=== PATIENT | female | born 1955 | race Two or more races ===

== ENCOUNTER 2018-12-02 17:14 | Observation (INO) | payer OTHER ==
--- NOTE | 2018-12-02 17:45 | EDPHY ---
H & P Time Seen by Provider: 12/02/18 17:45 HPI/ROS: CHIEF COMPLAINT: Bilateral thigh wounds HISTORY OF PRESENT ILLNESS: Patient is on multiple medications for rheumatoid arthritis including methotrexate. She had symptoms of a urinary tract 2 weeks ago and was treated with norfloxacin and tinidazole, and that got better but she was having some urinary leakage onto her thighs and developed a rash or a sore on both thighs which now is worsening and more painful. Associated with chills but no fever. Her urinary symptoms have improved. She also has a sore in her mouth that has been there for several months. REVIEW OF SYSTEMS: Eye: no change in vision ENT: HPI Cardiac: no chest pain or syncope Pulmonary: no cough or SOB Abdomen: no vomiting, diarrhea, abdominal pain Musculoskeletal: no back pain; can't walk due to skin rash rubbing and pain Skin: HPI Neuro: no headache Constitutional: Chills : no urinary symptoms A comprehensive 10 point review of systems is otherwise negative aside from elements mentioned in the history of present illness. PAST MEDICAL HISTORY: Includes hypertension, rheumatoid arthritis on methotrexate and leflunomide, hypothyroid Social history: Here with her daughter who is translating General Appearance: Alert and conversant, cooperative. Eyes: No scleral icterus. ENT, Mouth: Intraoral small linear 5 mm ulcer base of the tongue on the right. It apparently has been there for over a month. Respiratory: Normal respiratory effort, breath sounds equal, lungs are clear to auscultation. Cardiovascular: Regular rate and rhythm. Tachycardic. Gastrointestinal: Abdomen is soft and non tender. Neurological: Alert, face symmetric, normal motor and sensory in extremities. Skin: Bilateral crusting lesions on both inner thighs 8 cm diameter without lymphangitis or fluctuance but tender to palpation. Musculoskeletal: No peripheral edema. Psychiatric: Not agitated. Emergency Department course/MDM: Heart rate noted to be elevated, with chills and cellulitis concern for more systemic infection possibly. CBC chemistry IV fluids and lactate. 1936: Re-evaluated heart rate is 110. Recommended admission; possible cellulitis with tachycardia and inability to walk. I think it is unlikely to be Solorzano-Mickey. Her oral ulcer was there before recent antibiotic treatment. Smoking Status: Never smoked Constitutional: Initial Vital Signs Temperature (C) 36.7 C 12/02/18 17:23 Heart Rate 112 H 12/02/18 17:23 Respiratory Rate 18 12/02/18 17:23 Blood Pressure 152/101 H 12/02/18 17:23 O2 Sat (%) 97 12/02/18 17:23 O2 Delivery Mode Room Air Allergies/Adverse Reactions: No Known Allergies Allergy (Unverified 12/02/18 17:21) Home Medications: Medication Instructions Recorded Folic Acid [Folic Acid 1 MG (*)] 1 mg PO SUMOTHFRSA 12/02/18 Levothyroxine [Synthroid 125 mcg 125 mcg PO DAILY06 12/02/18 (*)] Losartan/Hctz 50/12.5 [Hyzaar 1 tab PO DAILY 12/02/18 50/12.5MG (*)] Methotrexate Sodium [Trexall] 10 mg PO WE 12/02/18 Omeprazole 20 mg PO DAILY 12/02/18 Medical Decision Making Differential Diagnosis: Differential considered including but not limited to cellulitis, abscess, fasciitis, contact dermatitis, drug reaction Consult/Admit Bed Type: [place] [id number] - Data Points Laboratory Results: Laboratory Results 12/02/18 18:05 12/02/18 18:05 12/02/18 12/02/18 12/02/18 19:35 18:06 18:05 WBC RBC Hgb Hct MCV MCH MCHC RDW Plt Count MPV Neut % (Auto) Lymph % (Auto) [place] % (Auto) Eos % (Auto) Baso % (Auto) Nucleat RBC Rel Count Absolute Neuts (auto) Absolute Lymphs (auto) Absolute Monos (auto) Absolute Eos (auto) Absolute Basos (auto) Absolute Nucleated RBC Immature Gran % Immature Gran # ESR VBG Lactic Acid 1.0 mmol/L mmol/L (0.7-2.1) Sodium Potassium Chloride Carbon Dioxide Anion Gap BUN Creatinine Estimated GFR Glucose Calcium C-Reactive Protein Pending Urine Color PALE YELLOW Urine Appearance CLEAR Urine pH 6.0 (5.0-7.5) Ur Specific [place] 1.002 (1.002-1.030) Urine Protein NEGATIVE (NEGATIVE) Urine Ketones NEGATIVE (NEGATIVE) Urine Blood NEGATIVE (NEGATIVE) Urine Nitrate NEGATIVE (NEGATIVE) Urine Bilirubin NEGATIVE (NEGATIVE) Urine Urobilinogen NEGATIVE EU EU (0.2-1.0) Ur Leukocyte Esterase NEGATIVE (NEGATIVE) Urine Glucose NEGATIVE (NEGATIVE) 12/02/18 12/02/18 12/02/18 18:05 18:05 18:05 WBC 3.11 10^3/uL L 10^3/uL (3.80-9.50) RBC 3.41 10^6/uL L 10^6/uL (4.18-5.33) Hgb 9.4 g/dL L g/dL (12.6-16.3) Hct 29.2 % L % 28.7 % L % (38.0-47.0) (38.0-47.0) MCV 84.2 fL fL (81.5-99.8) MCH 27.6 pg L pg (27.9-34.1) MCHC 32.8 g/dL g/dL (32.4-36.7) RDW 15.1 % % (11.5-15.2) Plt Count 171 10^3/uL 10^3/uL (150-400) MPV 10.1 fL fL (8.7-11.7) Neut % (Auto) 50.5 % % (39.3-74.2) Lymph % (Auto) 32.8 % % (15.0-45.0) [place] % (Auto) 11.6 % % (4.5-13.0) Eos % (Auto) 4.2 % % (0.6-7.6) Baso % (Auto) 0.3 % % (0.3-1.7) Nucleat RBC Rel Count 0.0 % % (0.0-0.2) Absolute Neuts (auto) 1.57 10^3/uL L 10^3/uL (1.70-6.50) Absolute Lymphs (auto) 1.02 10^3/uL 10^3/uL (1.00-3.00) Absolute Monos (auto) 0.36 10^3/uL 10^3/uL (0.30-0.80) Absolute Eos (auto) 0.13 10^3/uL 10^3/uL (0.03-0.40) Absolute Basos (auto) 0.01 10^3/uL L 10^3/uL (0.02-0.10) Absolute Nucleated RBC 0.00 10^3/uL 10^3/uL (0-0.01) Immature Gran % 0.6 % % (0.0-1.1) Immature Gran # 0.02 10^3/uL 10^3/uL (0.00-0.10) ESR Pending VBG Lactic Acid Sodium 133 mEq/L L mEq/L (135-145) Potassium 3.9 mEq/L mEq/L (3.5-5.2) Chloride 101 mEq/L mEq/L (97-110) Carbon Dioxide 21 mEq/l L mEq/l (22-31) Anion Gap 11 mEq/L mEq/L (6-14) BUN 14 mg/dL mg/dL (7-23) Creatinine 0.9 mg/dL mg/dL (0.6-1.0) Estimated GFR > 60 Glucose 100 mg/dL mg/dL (70-100) Calcium 9.1 mg/dL mg/dL (8.5-10.4) C-Reactive Protein Urine Color Urine Appearance Urine pH Ur Specific [place] Urine Protein Urine Ketones Urine Blood Urine Nitrate Urine Bilirubin Urine Urobilinogen Ur Leukocyte Esterase Urine Glucose Medications Given: Discontinued Medications Sodium Chloride (Ns) 2,100 mls @ 4,200 mls/hr 30 ml/kg infuse over 30 min ( 2100 ml) IV EDNOW ONE PRN Reason: Protocol Stop: 12/02/18 18:25 Last Admin: 12/02/18 18:32 Dose: 2,100 mls Cefazolin Sodium/Dextrose (Ancef) 100 mls @ 200 mls/hr IV EDNOW ONE PRN Reason: Protocol Stop: 12/02/18 18:40 Last Admin: 12/02/18 18:36 Dose: 100 mls Departure - Departure Disposition: [facility] Acute Clinical Impression: bilateral thigh cellulitis Condition: Fair
[2018-12-02] MEDS ORDERED: NS 2,100 ML IV ONE (17:56)
[2018-12-02] MEDS ORDERED: ceFAZolin 2 GM/DEXTROSE 100 ML IV ONE (18:11)
[2018-12-02 18:27] LABS: PLATELET COUNT 171 10^3/uL (150-400)
[2018-12-02] MEDS ORDERED: ONDANSETRON 4 MG/2 ML VIAL IVP PRN (21:39)
[2018-12-02] MEDS ORDERED: ACETAMINOPHEN 325 MG TAB PO PRN (21:39)
[2018-12-02] MEDS ORDERED: HYDROCODONE/APAP 5/325 TAB PO PRN (21:39)
[2018-12-02] MEDS ORDERED: HYDROmorphONE/DILAUDID 2 MG TAB PO PRN (21:39)
[2018-12-02] MEDS ORDERED: ONDANSETRON DISINTEGRATING 4 MG TAB PO PRN (21:39)
[2018-12-02] MEDS ORDERED: PROMETHAZINE HCL 25 MG/ML INJ IVP PRN (21:39)
[2018-12-02] MEDS ORDERED: oxyCODONE IR 5 MG TAB PO PRN (21:39)
[2018-12-02] MEDS ORDERED: CALCIUM CARBONATE 500 MG CHEWABLE TAB PO PRN (21:43)
[2018-12-02] MEDS ORDERED: NS 1,000 ML IV SCH (21:45)
[2018-12-02] MEDS: ceFAZolin 2 GM/DEXTROSE 100 ML IV SCH (22:33)
--- NOTE | 2018-12-02 22:50 | PDGENHP ---
History and Physical - Chief Complaint inner thigh pain/difficulty walking - History of Present Illness 63 yo F from [place] presenting with her daughter with complaints of bilateral inner thigh pain following a recent UTI with associated urinary incontinence. She has a hx of rheumatoid arthritis and has been on treatment for that by a doctor in [place] who has her on methotrexate, leflunomide and up until 1 month ago prednisone as well. She states she is not sure that she needs all of those medications as she has no significant joint pain or e/o joint destruction, her most painful joint is her knee and she is not sure that is due to RA. She has been dealing with recurrent UTIs for quite some time, her most recent one was severe and she was leaking urine due to that. Her inner thighs were constantly wet and chaffed, and now she has associated severe pain, warmth and redness along with crusting and the pain has been so severe that she has not been able to walk. She also states she has been dealing with some GI issues that include heartburn and frequent gas, she has decreased appetite due to that. She had an EGD in [place] that she states was normal. She takes a BID PPI typically for that. She does not currently have any urinary sxs. She has not had fever or chills. She has recently been dealing with thrush and although it is a bit better it is not all the way gone. History Information - Allergies/Home Medication List Allergies/Adverse Reactions: No Known Allergies Allergy (Unverified 12/02/18 17:21) Home Medications: Folic Acid [Folic Acid 1 MG (*)] 1 mg PO SUMOTHFRSA 12/02/18 [Last Taken ] Levothyroxine [Synthroid 125 mcg (*)] 125 mcg PO DAILY06 12/02/18 [Last Taken ] Losartan/Hctz 50/12.5 [Hyzaar 50/12.5MG (*)] 1 tab PO DAILY 12/02/18 [Last Taken 12/02/18] Methotrexate Sodium [Trexall] 10 mg PO TUWE 12/02/18 [Last Taken 12/01/18] Omeprazole 20 mg PO DAILY 12/02/18 [Last Taken 12/02/18] I have personally reviewed and updated: family history, medical history, social history, surgical history - Past Medical History GERD, hypertension Additional medical history: hypothyroid. Rheumatoid arthritis. recurrent UTI. thrush - Surgical History Reports: no pertinent surgical hx - Family History Positive for: non-pertinent - Social History Smoking Status: Never smoked Alcohol Use: None Drug Use: None Additional social history: from [facility], here visiting her daughter who works at [employer] Review of Systems Review of Systems: ROS: 10pt was reviewed & negative except for what was stated in HPI & below Physical Exam Physical Exam: Temp Pulse Resp BP Pulse Ox 36.7 C 91 16 134/79 H 96 12/02/18 21:03 12/02/18 21:03 12/02/18 21:03 12/02/18 21:03 12/02/18 21:03 Constitutional: appears nourished, uncomfortable Eyes: PERRL, anicteric sclera Ears, Nose, Mouth, Throat: oral ulcer, poor dentition, dry mucous membranes Cardiovascular: regular rate and rhythym, systolic murmur, tachycardia Respiratory: no respiratory distress, no rales or rhonchi, clear to auscultation Gastrointestinal: normoactive bowel sounds, soft, non-tender abdomen Genitourinary: no bladder tenderness Skin: no fluctuance, abrasion (bilateral inner thigh region), erythema Musculoskeletal: full muscle strength Neurologic: AAOx3 Psychiatric: interacting appropriately, not anxious, not encephalopathic Lab Data & Imaging Review 12/02/18 18:05 12/02/18 18:05 WBC 3.11 10^3/uL (3.80-9.50) L 12/02/18 18:05 RBC 3.41 10^6/uL (4.18-5.33) L 12/02/18 18:05 Hgb 9.4 g/dL (12.6-16.3) L 12/02/18 18:05 Hct 29.2 % (38.0-47.0) L 12/02/18 18:05 MCV 84.2 fL (81.5-99.8) 12/02/18 18:05 MCH 27.6 pg (27.9-34.1) L 12/02/18 18:05 MCHC 32.8 g/dL (32.4-36.7) 12/02/18 18:05 RDW 15.1 % (11.5-15.2) 12/02/18 18:05 Plt Count 171 10^3/uL (150-400) 12/02/18 18:05 MPV 10.1 fL (8.7-11.7) 12/02/18 18:05 Neut % (Auto) 50.5 % (39.3-74.2) 12/02/18 18:05 Lymph % (Auto) 32.8 % (15.0-45.0) 12/02/18 18:05 [place] % (Auto) 11.6 % (4.5-13.0) 12/02/18 18:05 Eos % (Auto) 4.2 % (0.6-7.6) 12/02/18 18:05 Baso % (Auto) 0.3 % (0.3-1.7) 12/02/18 18:05 Nucleat RBC Rel Count 0.0 % (0.0-0.2) 12/02/18 18:05 Absolute Neuts (auto) 1.57 10^3/uL (1.70-6.50) L 12/02/18 18:05 Absolute Lymphs (auto) 1.02 10^3/uL (1.00-3.00) 12/02/18 18:05 Absolute Monos (auto) 0.36 10^3/uL (0.30-0.80) 12/02/18 18:05 Absolute Eos (auto) 0.13 10^3/uL (0.03-0.40) 12/02/18 18:05 Absolute Basos (auto) 0.01 10^3/uL (0.02-0.10) L 12/02/18 18:05 Absolute Nucleated RBC 0.00 10^3/uL (0-0.01) 12/02/18 18:05 Immature Gran % 0.6 % (0.0-1.1) 12/02/18 18:05 Immature Gran # 0.02 10^3/uL (0.00-0.10) 12/02/18 18:05 ESR 52 MM/HR (0-30) H 12/02/18 18:05 VBG Lactic Acid 1.0 mmol/L (0.7-2.1) 12/02/18 18:06 Sodium 133 mEq/L (135-145) L 12/02/18 18:05 Potassium 3.9 mEq/L (3.5-5.2) 12/02/18 18:05 Chloride 101 mEq/L (97-110) 12/02/18 18:05 Carbon Dioxide 21 mEq/l (22-31) L 12/02/18 18:05 Anion Gap 11 mEq/L (6-14) 12/02/18 18:05 BUN 14 mg/dL (7-23) 12/02/18 18:05 Creatinine 0.9 mg/dL (0.6-1.0) 12/02/18 18:05 Estimated GFR > 60 12/02/18 18:05 Glucose 100 mg/dL (70-100) 12/02/18 18:05 Calcium 9.1 mg/dL (8.5-10.4) 12/02/18 18:05 C-Reactive Protein 12.7 mg/L (<10.0) H 12/02/18 18:05 Urine Color PALE YELLOW 12/02/18 19:35 Urine Appearance CLEAR 12/02/18 19:35 Urine pH 6.0 (5.0-7.5) 12/02/18 19:35 Ur Specific [place] 1.002 (1.002-1.030) 12/02/18 19:35 Urine Protein NEGATIVE (NEGATIVE) 12/02/18 19:35 Urine Ketones NEGATIVE (NEGATIVE) 12/02/18 19:35 Urine Blood NEGATIVE (NEGATIVE) 12/02/18 19:35 Urine Nitrate NEGATIVE (NEGATIVE) 12/02/18 19:35 Urine Bilirubin NEGATIVE (NEGATIVE) 12/02/18 19:35 Urine Urobilinogen NEGATIVE EU (0.2-1.0) 12/02/18 19:35 Ur Leukocyte Esterase NEGATIVE (NEGATIVE) 12/02/18 19:35 Ur Culture Indicated? NOT INDICATED (NI) 12/02/18 19:35 Urine Glucose NEGATIVE (NEGATIVE) 12/02/18 19:35 Assessment & Plan Assessment: 63 yo F from [place] with PMH of RA on chronic immune suppression presenting with cellulitis of inner thigh in association with abrasion and severe pain and inability to walk due to that # cellulitis: erythematous and tender to palpation in bilateral inner thighs with associated abrasion/chafing. She notes this has been in the setting of urinary incontinence and constant moisture as well as friction. No clear fluctuance or induration. Started on ancef, will continue for now. Given associated complications of chronic immune suppression will ask ID to evaluate in am, she would prefer to dc back to her daughter and f/u as OP if possible # gait instability: reportedly due to pain from above rather than weakness or balance issues, does not appear weak on exam, will ask pt/ot and wound care to evaluate and see if the areas can be protected and walking easier in that setting # RA: patient with relatively benign joint exam--no e/o joint deformity or warmth, denies significant pain. On methotrexate and leflunomide as well as prednisone until recently. Family and patient wonder if that is excessive, which it sounds like it might be. Will check esr/crp (though could be influenced by infection as above rather than all due to RA) and consider curbside consult of rheum prior to dc. Holding those meds for now # HTN: will continue op medications # GERD: patient notes that her sxs are severe and not much helped by her usual BID PPI, will continue home meds, prn tums, she did have recent EGD per her report that was normal # recurrent UTI: no current sxs of uti, perhaps related to immune suppression, UA negative # thrush: currently mouth not clearly c/w thrush, she does have linear ulcer on base of her tongue and small patchy areas however and per daughter was clearly thrush previously--she was treated with fluconazole. Will start nystatin s/s # observation status Patient new to my care. Care plan reviewed with ER doctor, further hx obtained from patients daughter present at bedside.
[2018-12-03] MEDS: ceFAZolin 2 GM/DEXTROSE 100 ML IV SCH (04:41)
[2018-12-03] MEDS: NYSTATIN SUSP 500000 UNIT/5 ML UD LIQ PO SCH ×3 (04:43→18:36)
[2018-12-03 05:24] LABS: PLATELET COUNT 166 10^3/uL (150-400)
[2018-12-03] MEDS ORDERED: LEVOTHYROXINE 125 MCG TAB PO SCH (06:00)
[2018-12-03] MEDS ORDERED: LOSARTAN/HCTZ 50/12.5 1 TAB PO SCH (09:00)
[2018-12-03] MEDS ORDERED: PANTOPRAZOLE SODIUM 40 MG TAB PO SCH ×2 (09:00)
--- NOTE | 2018-12-03 12:38 | WOCRNPDOC ---
[facility] Advanced Assessment Note - Skin Integrity Problem, Advanced Assess Right Upper Medial Leg Dressing Type: Allevyn Life Dressing Description: Clean/Dry, Intact Exudate Amount: Scant Exudate Characteristic(s): Serosanguinous Integumentary Issue Intervention: Dressing Changed Ailyn Wound Tissue: Calloused, Hyperkeratotic Wound Bed Constitution: Red/[place] - Non Granular Tissue Wound Edges: Attached Site Measurement - Head-to-Toe Length X Width X Depth (cm): 6x4x0.1 Skin Integrity Problem Comment: Partial thickness opening in bilateral inner thighs from friction. No sign of infection. Cleaned with ns and gauze. Discussed care plan with patient's daughter who was in the room for the assessment. All questions answered regarding dressing changes and plan of care. Wound gel applied to wound beds and covered with Allevyn Life. Amauri Addison in room for care. Left Upper Medial Leg Dressing Type: Allevyn Life Dressing Description: Clean/Dry, Intact Exudate Amount: Scant Exudate Characteristic(s): Serosanguinous Integumentary Issue Intervention: Dressing Changed Ailyn Wound Tissue: Calloused, Hyperkeratotic Wound Bed Constitution: Red/[place] - Non Granular Tissue Wound Edges: Attached Site Measurement - Head-to-Toe Length X Width X Depth (cm): 4x5x0.1
[2018-12-03 15:14] VITALS: BP 126/6
[2018-12-03] MEDS ORDERED: FOLIC ACID 1 MG TAB PO SCH (21:41)
--- NOTE | 2018-12-08 01:05 | GDS ---
[f rep st] DISCHARGE SUMMARY DISCHARGE DIAGNOSES: 1. 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 2. Rheumatoid arthritis. 3. Hypertension. 4. Gastroesophageal reflux disease. HISTORY OF DETAILS: Please see history and physical dated December 02, 2018. In brief, the patient is a 63-year-old female, visiting her daughter from [place], who presented to the emergency department wit h bilateral inner thigh wounds which are causing her discomfort. She was admitted due to concern for possible cellulitis and started on IV Ancef. HOSPITAL COURSE: Patient was admitted to the med/surg unit. I evaluated her on the day of discharge , and I suspect this is all chronic hyperkeratotic skin changes due to chronic chafing and rubbing. This may be partially a hygiene issue as she does dribble urine after urinating. It sounds like they do not use toilet paper, so she may be chronically wet. We discussed proper hygiene and I recommend ed a barrier to her inner thighs, either in the form of dressings versus some type of bike shorts jasmyn t would prevent her skin from rubbing together, as this is what is contributing to the chronic hyperk eratotic lesions on her inner thighs. She was evaluated by Wound Care, who applied Allevyn-Life dres sing to both medial thighs. Again, there was no evidence of erythema or purulence. She has no fever s or white blood cell counts. This is not consistent with infection. DISPOSITION: Patient is discharged home in stable condition. FOLLOWUP: She should follow up with her outpatient primary care physician. DISCHARGE MEDICATIONS: Please see [facility] for completed outpatient medication list. There are no n ew medications on discharge /[id number]/MODL
== END 2018-12-03 20:20 | disposition home or self-care (01) ==
LOC: F3E 20:53
PROVIDERS: ADMIT Internal Medicine; ATTEND Hospitalist
DX: L30.4 Erythema intertrigo (principal); L85.9 Epidermal thickening, unspecified; B37.0 Candidal stomatitis; M06.9 Rheumatoid arthritis, unspecified; I10 Essential (primary) hypertension; K21.9 Gastro-esophageal reflux disease without esophagitis; E03.9 Hypothyroidism, unspecified; L03.116 Cellulitis of left lower limb
CPT/HCPCS: 96374; 97161; 97165; 99285; G0378; J0690